=== PATIENT | male | born 1965 | race Caucasian/White ===

== ENCOUNTER 2016-12-25 21:14 | Emergency (ER) | payer OTHER ==
[2016-12-25 21:24] VITALS: BP 167/98; PULSE 98; TEMP 98; BMI 33.8
[2016-12-25] MEDS ORDERED: KETOROLAC TROMETHAMINE 30 MG/1 ML VIAL IM ONE (21:25)
--- NOTE | 2016-12-25 21:25 | PDOC ---
Rapid Medical Evaluation Medical Evaluation: Allergies Allergy/AdvReac Type Severity Reaction Status Date / Time iodine Allergy Verified 03/07/15 06:36 Penicillins Allergy Verified 03/07/15 06:36 12/25/16 21:20 I have performed a brief in-person evaluation of this patient. The patient presents with a chief complaint of right flank pain x 1 hour that radiates to right groin. Pertinent physical exam findings: ABD: Obese abdomen. SNTND. : Right CVAT. I have ordered the following: Toradol 30mg IM, UA, spiral CT, NS 1 liter bolus The patient will proceed to to the ED for further evaluation.
[2016-12-25] MEDS ORDERED: SODIUM CHLORIDE 1,000 ML IV STA (21:26)
[2016-12-25 22:33] LABS: URINE APPEARANCE SLCLOUDY; URINE BILIRUBIN NEGATIVE (NEGATIVE); URINE BLOOD 3+ (NEGATIVE); URINE COLOR YELLOW; URINE GLUCOSE (UA) 3+ (NEGATIVE); URINE KETONE TRACE (NEGATIVE); URINE NITRITE NEGATIVE (NEGATIVE); URINE UROBILINOGEN NEGATIVE mg/dL (0.2-1.0)
[2016-12-25 22:41] LABS: URINE PROTEIN 1+ (NEGATIVE)
[2016-12-25 23:15] LABS: URINE MUCUS RARE; URINE RBC 293 /hpf (0-3); URINE WBC 1 /hpf (3-5)
--- NOTE | 2016-12-26 00:10 | PDOC ---
History of Present Illness - General Chief Complaint: Pain, Acute Stated Complaint: PAIN, ACUTE Time Seen by Provider: 12/25/16 21:27 - History of Present Illness Initial Comments: 51 year old male with PMH of HTN and NIDDM presenting with right sided flank pain radiating to his groin with some urinary hesitancy over the last day. The flank pain started suddenly without trauma then a few hours later he felt radiation down his groin and had some issues urinating with noticed difficulty initiating urination. Denies fevers, chills, nausea, vomiting, diarrhea, or other symptoms. His PCP is Dr. Melendrez. 12/26/16 05:17 Past History - Past Medical History Allergies/Adverse Reactions: Allergies Allergy/AdvReac Type Severity Reaction Status Date / Time iodine Allergy Verified 12/25/16 21:21 Penicillins Allergy Verified 12/25/16 21:21 Home Medications: Ambulatory Orders Amlodipine Besylate 5 mg PO DAILY 03/06/15 Aspirin [ASA -] 81 mg PO DAILY 03/06/15 Glimepiride 1 mg PO DAILY 03/06/15 Hydrochlorothiazide 25 mg PO DAILY 03/06/15 Ranitidine [Zantac -] 150 mg PO DAILY 03/06/15 Sitagliptin Phos/Metformin HCl [Janumet 50-1,000 mg Tablet] 1 tab PO DAILY 03/06 Valsartan [Diovan] 160 mg PO DAILY 03/06/15 Fluticasone Propionate [Flonase Allergy Relief] 9.9 ml NS DAILY 12/26/16 Ibuprofen 800 mg PO DAILY PRN #30 tablet 12/26/16 Tamsulosin HCl [Flomax -] 0.4 mg PO DAILY #10 capsule 12/26/16 Anemia: No Asthma: No Cancer: No Cardiac Disorders: No CVA: No COPD: No CHF: No Dementia: No Diabetes: Yes (TYPE 2) GI Disorders: No Disorders: No HTN: Yes Hypercholesterolemia: Yes Liver Disease: No Seizures: No Thyroid Disease: No - Suicide/Smoking/Psychosocial Hx Smoking History: Current every day smoker Have you smoked in the past 12 months: Yes Number of Cigarettes Smoked Daily: 30 Information on smoking cessation initiated: No Hx Alcohol Use: No Drug/Substance Use Hx: No Substance Use Type: None Hx Substance Use Treatment: No Review of Systems - Review of Systems Constitutional: No: Chills, Diaphoresis, Fever HEENTM: No: Blurred Vision, Tearing, Recent change in vision Respiratory: No: Cough, Orthopnea, Shortness of Breath Cardiac (ROS): No: Chest Pain ABD/GI: No: Diarrhea, Nausea, Poor Appetite, Vomiting : Yes: Other (Difficulty initiating stream). No: Burning, Dysuria Musculoskeletal: Yes: Back Pain Integumentary: No: Bruising, Change in Color *Physical Exam - Vital Signs Last Vital Signs Temp Pulse Resp BP Pulse Ox 98.0 F 98 H 20 167/98 98 12/25/16 21:21 12/25/16 21:21 12/25/16 21:21 12/25/16 21:21 12/25/16 21:21 - Physical Exam General Appearance: Yes: Nourished, Appropriately Dressed. No: Apparent Distress HEENT: positive: EOMI, LEW, Normal ENT Inspection, Normal Voice Neck: positive: Trachea midline, Normal Thyroid, Rigid, Supple. negative: Tender Respiratory/Chest: positive: Lungs Clear, Normal Breath Sounds. negative: Chest Tender, Respiratory Distress Cardiovascular: positive: Regular Rhythm, Regular Rate. negative: Murmur Gastrointestinal/Abdominal: positive: Normal Bowel Sounds, Tender (Right Upper Quadrant Tenderness to light palpation), Flat, Soft Musculoskeletal: positive: Normal Inspection. negative: CVA Tenderness Extremity: positive: Normal Inspection, Normal Range of Motion. negative: Tender Integumentary: positive: Normal Color, Dry, Warm Neurologic: positive: Fully Oriented, Alert, Normal Mood/Affect ED Treatment Course - LABORATORY CBC & Chemistry Diagram: 12/26/16 00:40 12/26/16 00:40 - ADDITIONAL ORDERS Additional order review: Laboratory Results 12/25/16 21:40 Urine Color Yellow Urine Appearance Slcloudy Urine pH 5.0 Ur Specific [place] 1.020 Urine Protein 1+ H Urine Glucose (UA) 3+ H Urine Ketones Trace H Urine Blood 3+ H Urine Nitrite Negative Urine Bilirubin Negative Urine Urobilinogen Negative Urine RBC 293 Urine WBC 1 Ur Epithelial Cells Rare Urine Mucus Rare Medical Decision Making - Medical Decision Making 51 year old male with PMH of HTN presenting with right sided flank pain and urinary symptoms most concerning for a renal calculus. He is tender in his RUQ which also puts on the differential cholecysitis vs. cholelithiasis. He is afebrile with some HTN in the setting of pain. His pain resolved with Toradol [address] evidenced a right sided 6mm stone. UA demonstrating significant hematuria with 3+ blood. There was some slight elevation creatinine compared to labs from a few years prior. We discussed the findings with the patient and the likelihood that he may need to come back for stone removal. The patient endorsed that he would like to go home and followup with urology through Dr. Melendrez. He was DC'd home with flowmax, Motrin and follow up instructions with return precautions. 12/26/16 06:12 *DC/Admit/Observation/Transfer Diagnosis at time of Disposition: Renal calculus - Discharge Dispostion Disposition: HOME Condition at time of disposition: Improved Admit: No - Prescriptions Prescriptions: Tamsulosin HCl [Flomax -] 0.4 mg PO DAILY #10 capsule Ibuprofen 800 mg PO DAILY PRN #30 tablet PRN Reason: Pain Level 6-10 - Referrals Referrals: Gómez Barbosa MD [Primary Care Provider] - - Patient Instructions Printed Discharge Instructions: DI for Kidney Stones Additional Instructions: You were seen for right sided pain. We did a CT scan and found a 6mm stone. This stone is slightly larger than the average stone size that will pass through your urine but there is a chance it should still pass within the next few days. You must hydrate with clear water for the next few days. You can use Ibuprofen 800 MG for the pain. Please also take the flowmax nightly. Please follow up with Dr. Melendrez as soon as possible for a urology referral. Please return to the ED if your pain is not controlled with the Ibuprofen 800 MG or you see a lot of blood in your urine. As discussed previously, your pain might get worse when the pain starts to get close to exiting.
[2016-12-26] MEDS ORDERED: KETOROLAC TROMETHAMINE 30 MG/1 ML VIAL ONE (00:46)
[2016-12-26 00:54] LABS: BASOPHIL 0.3 % (0-2.0); EOSINOPHIL 0.5 % (0-4.5); MCH 29.7 pg (25.7-33.7); MCHC 33.8 g/dl (32.0-35.9); MEAN CELL VOLUME 88.1 fl (80-96); MEAN PLT VOLUME 9.6 fl (7.5-11.1); NEUTROPHILS 70.9 % (42.8-82.8); PLATELET COUNT 247 K/MM3 (134-434)
--- NOTE | 2016-12-26 01:02 | PDOC ---
Attending Attestation - Resident Resident Name: Thea Carlson - ED Attending Attestation I have performed the following: I have examined & evaluated the patient, The case was reviewed & discussed with the resident, I agree w/resident's findings & plan, Exceptions are as noted - HPI HPI: 12/26/16 00:58 Sudden onset of right side flank pain, radiating to the right groin. , dark urine and hesitancy. - Physicial Exam PE: 12/26/16 01:01 *Physical Exam General Appearance: Yes: Appropriately Dressed. No: Apparent Distress, Intoxicated HEENT: positive: EOMI, LEW, Normal ENT Inspection, Normal Voice, TMs Normal, Pharynx Normal. negative: Pale Conjunctivae, Photophobia, Scleral Icterus (R), Scleral Icterus (L) Neck: positive: Trachea midline, Normal Thyroid, Supple. negative: Tender, Rigid, Carotid bruit, Stridor, Lymphadenopathy (R), Lymphadenopathy (L), Thyromegaly Respiratory/Chest: positive: Lungs Clear, Normal Breath Sounds. negative: Chest Tender, Respiratory Distress, Accessory Muscle Use, Labored Respiration, RES, Crackles, Rales, Rhonchi, Stridor, Wheezing, Dullness Cardiovascular: positive: Regular Rhythm, Regular Rate, S1, S2. negative: Edema , JVD, Murmur, Bradycardia, Tachycardia Vascular Pulses: Dorsalis-Pedis (R): 2+, Doralis-Pedis (L): 2+ Gastrointestinal/Abdominal: positive: Normal Bowel Sounds, Flat, Soft. negative : Tender, Organomegaly, Pulsatile Mass, Increased Bowel Sounds, Decreased BS, Distended, Guarding, Rebound, Hernia, Hepatomegaly, Spleenomegaly Lymphatic: negative: Adenopathy, Tenderness Musculoskeletal: positive: Normal Inspection. negative: CVA Tenderness, Decreased Range of Motion Extremity: positive: Normal Capillary Refill, Normal Inspection, Normal Range of Motion, Pelvis Stable. negative: Tender, Pedal Edema, Swelling, Erythema Integumentary: positive: Normal Color, Dry, Warm. negative: Cyanotic, Erythema , Jaundice, Rash Neurologic: positive: rehabilitation caseworker II-XII NML intact, Fully Oriented, Alert, Normal Mood/ Affect, Motor Strength 5/5. negative: EOM Palsy, Facial Droop, Sensory Deficit - Medical Decision Making 12/26/16 19:20 Pt feels better. Pt discharged to follow up with his pcp and urology. Pt found to have righ sided kidney stone.
[2016-12-26 01:18] LABS: ANION GAP 8 (8-16); BILIRUBIN,TOTAL 0.4 mg/dL (0.2-1.0); CALCIUM 9.6 mg/dL (8.5-10.1); CO2 29 mmol/L (21-32); CREATININE 1.2 mg/dL (0.7-1.3); SGOT/AST 10 U/L (15-37); SGPT/ALT 20 U/L (12-78); TOT PROT 7.4 g/dl (6.4-8.2)
[2016-12-26 01:19] LABS: ALK PHOS 62 U/L (45-117)
[2016-12-26 01:20] LABS: GLUCOSE,RANDOM 318 mg/dL (74-106)
[2016-12-26] MEDS ORDERED: TAMSULOSIN HCL 0.4 MG CAP.ER.24H (FP) PO ONE (02:31)
[2016-12-26] MEDS ORDERED: TAMSULOSIN HCL 0.4 MG CAP.ER.24H (FP) ONE (02:32)
[2016-12-26 12:05] LABS: URINE LEUK ESTERASE Negative (NEGATIVE)
--- NOTE | 2016-12-28 07:25 | PDOC ---
Patient Follow-up (Call Back) - Post ED Follow - Up Chief Complaint: Pain, Acute Condition at time of discharge: Improved Disposition at time of original discharge: HOME Reason for Call Back: Abnwl. Microbiology (UC shows a non lactose fermenting GNB , colony count 20,000-30,000. No further tx needed as colony count not greated than 100,000.)
== END 2016-12-26 02:48 | disposition home or self-care (01) ==
LOC: JER 21:14
PROC: 3E0233Z Introduction of Anti-inflammatory into Muscle, Percutaneous Approach (ICD-10-PCS; principal; 2016-12-25)
PROC: 3E0337Z Introduction of Electrolytic and Water Balance Substance into Peripheral Vein, Percutaneous Approach (ICD-10-PCS; 2016-12-25)
DX: N23 Unspecified renal colic (principal); I10 Essential (primary) hypertension; F17.210 Nicotine dependence, cigarettes, uncomplicated
CPT/HCPCS: 36415; 74176; 80053; 81003; 81015; 85025; 87086; 87186; 99282-25

== ENCOUNTER 2017-10-25 13:38 | Emergency (ER) | payer OTHER ==
[2017-10-25 13:45] VITALS: BP 165/81; PULSE 83; TEMP 98.7; BMI 33.5
--- NOTE | 2017-10-25 14:22 | PDOC ---
History of Present Illness - General Chief Complaint: Chest Pain Stated Complaint: CHEST PAIN Time Seen by Provider: 10/25/17 13:52 History Source: Patient Exam Limitations: No Limitations - History of Present Illness Initial Comments: 10/25/17 14:27 Patient is a 51M with history of DM2, HTN, smoking, AAA (monitored by US, last 3.1 cm) here today complaining of chest pain that started yesterday after coughing. Patient reports that he has a chronic cough from smoking and the cough has not changed. Patient states the chest pain is on the left side of his chest and increases in pain when he presses on his chest. Patient endorses associated shoulder pain and has been told that he has a spur in his left shoulder. Pain worsens with arm movement. Denies shortness of breath, fever, chills, nausea, vomiting, diaphoresis. Denies leg swelling, recent travel, history of blood clots. Past History - Past Medical History Allergies/Adverse Reactions: Allergies Allergy/AdvReac Type Severity Reaction Status Date / Time iodine Allergy Verified 10/25/17 13:45 Penicillins Allergy Verified 10/25/17 13:45 Home Medications: Ambulatory Orders Amlodipine Besylate 5 mg PO DAILY 03/06/15 Aspirin [ASA -] 81 mg PO DAILY 03/06/15 Glimepiride 4 mg PO DAILY 03/06/15 Hydrochlorothiazide 25 mg PO DAILY 03/06/15 Ranitidine [Zantac -] 150 mg PO BID 03/06/15 Sitagliptin Phos/Metformin HCl [Janumet 50-1,000 mg Tablet] 1 tab PO BID Albuterol Sulfate [Proair Respiclick] 90 mcg IH PRN 10/25/17 Atorvastatin Ca [Lipitor] 20 mg PO HS 10/25/17 Cholecalciferol (Vitamin D3) [Vitamin D3 -] 2,000 unit PO DAILY 10/25/17 Ibuprofen 600 mg PO PRN PRN 10/25/17 Vitamin B Complex 1 each PO DAILY 10/25/17 Anemia: No Asthma: No Cancer: No Cardiac Disorders: No CVA: No COPD: No CHF: No Dementia: No Diabetes: Yes (TYPE 2) GI Disorders: No Disorders: No HTN: Yes Hypercholesterolemia: Yes Liver Disease: No Seizures: No Thyroid Disease: No - Suicide/Smoking/Psychosocial Hx Smoking History: Current every day smoker Have you smoked in the past 12 months: Yes Number of Cigarettes Smoked Daily: 30 Information on smoking cessation initiated: Yes Hx Alcohol Use: No Drug/Substance Use Hx: No Substance Use Type: None Hx Substance Use Treatment: No Review of Systems - Review of Systems Comments:: 10/25/17 14:32 GENERAL/CONSTITUTIONAL: No fever or chills. No weakness. HEAD, EYES, EARS, NOSE AND THROAT: No change in vision. No ear pain or discharge. No sore throat. CARDIOVASCULAR: +chest pain no shortness of breath RESPIRATORY: +cough, no wheezing, or hemoptysis. GASTROINTESTINAL: No nausea, vomiting, diarrhea or constipation. GENITOURINARY: No dysuria, frequency, or change in urination. MUSCULOSKELETAL: No joint or muscle swelling or pain. No neck or back pain. SKIN: No rash NEUROLOGIC: No headache, vertigo, loss of consciousness, or change in strength/ sensation. ENDOCRINE: No increased thirst. No abnormal weight change HEMATOLOGIC/LYMPHATIC: No anemia, easy bleeding, or history of blood clots. ALLERGIC/IMMUNOLOGIC: No hives or skin allergy. *Physical Exam - Vital Signs Last Vital Signs Temp Pulse Resp BP Pulse Ox 98.7 F 83 18 165/81 99 10/25/17 13:42 10/25/17 13:42 10/25/17 13:42 10/25/17 13:42 10/25/17 13:42 - Physical Exam Comments: 10/25/17 14:32 GENERAL: Awake, alert, and fully oriented, in no acute distress HEAD: No signs of trauma, normocephalic, atraumatic EYES: PERRLA, EOMI, sclera anicteric, conjunctiva clear ENT: Auricles normal inspection, hearing grossly normal, nares patent, oropharynx clear without exudates. Moist mucosa NECK: Normal ROM, supple, no lymphadenopathy, JVD, or masses LUNGS: No distress, speaks full sentences, clear to auscultation bilaterally HEART: Regular rate and rhythm, normal S1 and S2, no murmurs, rubs or gallops, peripheral pulses normal and equal bilaterally. ABDOMEN: Soft, nontender, normoactive bowel sounds. No guarding, no rebound. No masses EXTREMITIES: Normal inspection, Normal range of motion, no edema. No clubbing or cyanosis. NEUROLOGICAL: Cranial nerves II through XII grossly intact. Normal speech, no focal sensorimotor deficits SKIN: Warm, Dry, normal turgor, no rashes or lesions noted. Heart Score/ECG Review - History History: Slightly suspicious - Electrocardiogram EKG: Normal - Age Age: 45-65 - Risk Factors Risk Factors Heart Score: Yes Hx Hypertension, Yes Hx Diabetes, Yes Smoking History Based on the list above the patient has:: >/=3 risk factors or Hx atherosclerotic disease - Troponin Troponin: </= normal limit - Score Heart Score - Total: 3 ED Treatment Course - LABORATORY CBC & Chemistry Diagram: 10/25/17 14:45 10/25/17 14:45 - RADIOLOGY Radiology Studies Ordered: Category Date Time Status CHEST PA & LAT [RAD] Stat Radiology 10/25/17 14:04 Ordered Medical Decision Making - Medical Decision Making 10/25/17 14:32 Patient is 51M here today with chest pain. Vital signs normal and stable. PE does not fit clinical picture, likely MSK pain. Heart Score of 3 based on risk factors and age. Will use HEART pathway, and likely discharge. EKG shows normal sinus rhythm with rate of 77. No st elevations/depressions. No significant t wave abnormalities. Normal axis. Normal intervals. 10/25/17 15:55 First trop undetectable. Pending CXR, CBC, repeat trop. 10/25/17 18:09 Second trop negative. Will d/c with cardio f/u. *DC/Admit/Observation/Transfer Diagnosis at time of Disposition: Chest pain - Discharge Dispostion Disposition: HOME Condition at time of disposition: Good Decision to Admit order: No - Referrals Referrals: Jori Barbosa MD [Primary Care Provider] - Jose Florian MD [Staff Physician] - - Patient Instructions Printed Discharge Instructions: DI for Atypical Chest Pain Additional Instructions: Please return if you have any new, worsening or concerning symptoms. Please follow up with your waste management recycling technician and primary care provider this week. - Post Discharge Activity
[2017-10-25 15:00] LABS: BASO % 0.4 % (0-2.0); EOS % 0.8 % (0-4.5); HEMATOCRIT 40.6 % (35.4-49); HEMOGLOBIN 14.2 GM/dL (11.7-16.9); LYMPH % 29.3 % (8-40); MCH 30.5 pg (25.7-33.7); MCHC 34.9 g/dl (32.0-35.9); MEAN CELL VOLUME 87.4 fl (80-96); MEAN PLT VOLUME 8.8 fl (7.5-11.1); MONO % 7.8 % (3.8-10.2); NEUT % 61.7 % (42.8-82.8); PLATELET COUNT 274 K/MM3 (134-434); RBC 4.65 M/mm3 (4.00-5.60); RDW 12.8 % (11.9-15.9); WHITE BLOOD COUNT 9.5 K/mm3 (4.0-10.0)
--- NOTE | 2017-10-25 15:14 | PDOC ---
Attending Attestation - HPI HPI: 10/25/17 16:11 The patient is a 51-year-old male with a past medical history of HTN, AAA ( yearly checkup) and IDDM present to the emergency department with chest pain. The patient presents with anterior chest wall pain since yesterday following heavy coughing. The patient reports he is in the process of quitting smoking. Reports hes been experiencing increased productive cough and states he went down deep to bring up the sputum. The patient reports the pain is aggravated with palpation of the chest wall, with relief noted with massaging the area. The patient reports hx of rib fracture in the past, states the pain isnt similar. Denies shortness of breath, fever, chill, cough, headache, nausea or vomiting. Allergies:iodine and penicillin. Social history: Current everyday smoker. No alcohol or drug use reported. Surgical history: None reported. PCP: Jori Alonso MD - Physicial Exam PE: 10/25/17 16:16 GENERAL: Awake, alert, and fully oriented, in no acute distress HEAD: No signs of trauma EYES: PERRLA, EOMI, sclera anicteric, conjunctiva clear ENT: Auricles normal inspection, hearing grossly normal, nares patent, oropharynx clear without exudates. Moist mucosa NECK: Normal ROM, supple, no lymphadenopathy, JVD, or masses LUNGS: Breath sounds equal, clear to auscultation bilaterally. No wheezes, and no crackles HEART: Regular rate and rhythm, normal S1 and S2, no murmurs, rubs or gallops ABDOMEN: Soft, nontender, normoactive bowel sounds. No guarding, no rebound. No masses EXTREMITIES: Normal range of motion, no edema. No clubbing or cyanosis. No cords, erythema, or tenderness NEUROLOGICAL: Cranial nerves II through XII grossly intact. Normal speech, normal gait SKIN: Warm, Dry, normal turgor, no rashes or lesions noted. - Medical Decision Making 10/25/17 16:11 Documentation prepared by Beth Luna, acting as senior medical writer for April Gonsalves MD. <Beth Luna - Last Filed: 10/25/17 16:16> - Resident Resident Name: Josr Paniagua - ED Attending Attestation I have performed the following: I have examined & evaluated the patient, The case was reviewed & discussed with the resident, I agree w/resident's findings & plan, Exceptions are as noted - Medical Decision Making Pt with atypical cp following a vigorous cough. He has recently been in the process of quitting smoking and has been coughing and bringing up phlegm frequently. Noted this pain after trying to expectorate. He has history of AAA, but does not have any symptoms c/w with any disturbance of it. Also has cardiac risk factors, therefore will do 3 hr rule out with 2 troponins. <April Gonsalves - Last Filed: 10/26/17 10:07>
[2017-10-25 15:25] LABS: ALBUMIN 3.8 g/dl (3.4-5.0); ANION GAP 6 MMOL/L (8-16); BILIRUBIN,TOTAL 0.2 mg/dL (0.2-1.0); BLOOD UREA NITROGEN 10 mg/dL (7-18); CALCIUM 9.1 mg/dL (8.5-10.1); CHLORIDE 105 mmol/L (98-107); CO2 30 mmol/L (21-32); CREATININE 0.9 mg/dL (0.7-1.3); GLUCOSE,RANDOM 144 mg/dL (74-106); MAGNESIUM 1.8 mg/dL (1.8-2.4); POTASSIUM 3.9 mmol/L (3.5-5.1); SGOT/AST 15 U/L (15-37); SGPT/ALT 23 U/L (12-78); SODIUM 141 mmol/L (136-145); TOT PROT 7.2 g/dl (6.4-8.2)
[2017-10-25 15:28] LABS: ALK PHOS 53 U/L (45-117)
[2017-10-25 15:39] LABS: INR 0.96 (0.83-1.09); PROTHROMBIN TIME (PATIENT) 10.9 SEC (9.7-13.0)
--- NOTE | 2017-10-27 13:55 | EKG ---
Test Reason : Blood Pressure : / mmHG Vent. Rate : 077 BPM Atrial Rate : 077 BPM P-R Int : 140 ms QRS Dur : 096 ms QT Int : 384 ms P-R-T Axes : 066 050 031 degrees QTc Int : 434 ms NORMAL SINUS RHYTHM NORMAL ECG WHEN COMPARED WITH ECG OF 10-FEB-2011 09:51, NO SIGNIFICANT CHANGE WAS FOUND Confirmed by ESTEBAN JORDAN MD ([id number]) on 10/27/2017 1:54:22 PM Referred By: Confirmed By:ESTEBAN JORDAN MD
== END 2017-10-25 18:40 | disposition home or self-care (01) ==
LOC: JER 13:38
DX: R07.9 Chest pain, unspecified (principal); I10 Essential (primary) hypertension; E78.00 Pure hypercholesterolemia, unspecified; E11.9 Type 2 diabetes mellitus without complications; Z79.84 Long term (current) use of oral hypoglycemic drugs; I71.4 Abdominal aortic aneurysm, without rupture; F17.210 Nicotine dependence, cigarettes, uncomplicated
CPT/HCPCS: 36415; 71046-TC-FY; 80053; 82550; 83735; 84484; 85025; 85610; 93005; 93010; 99282-25

== ENCOUNTER 2018-11-09 02:55 | Emergency (ER) | payer OTHER | END 2018-11-09 05:05 | disposition home or self-care (01) | LOC: JER 02:55 ==

== ENCOUNTER 2018-11-10 09:31 | Inpatient (IN) | payer OTHER ==
[2018-11-02 12:26] VITALS: BMI 32.2
--- NOTE | 2018-11-10 08:06 | HP ---
[facility] - Chief Complaint Chief Complaint: right knee pain - Past Medical History Allergies/Adverse Reactions: Allergies Allergy/AdvReac Type Severity Reaction Status Date / Time iodine Allergy Severe SHORT OF Verified 11/09/18 03:03 BREATH Penicillins Allergy Severe Hives Verified 11/09/18 03:03 - Current Medications Current Medications: Home Medications Medication Instructions Recorded Amlodipine Besylate 5 mg PO DAILY 03/06/15 Aspirin [ASA -] 81 mg PO DAILY 03/06/15 Glimepiride 4 mg PO DAILY 03/06/15 Hydrochlorothiazide 25 mg PO DAILY 03/06/15 Ranitidine [Zantac -] 150 mg PO BID 03/06/15 Sitagliptin Phos/Metformin HCl 1 tab PO BID 03/06/15 [Janumet 50-1,000 mg Tablet] Albuterol Sulfate [Proair 90 mcg IH PRN 10/25/17 Respiclick] Atorvastatin Ca [Lipitor] 20 mg PO HS 10/25/17 Cholecalciferol (Vitamin D3) 2,000 unit PO DAILY 10/25/17 [Vitamin D3 -] Ibuprofen 600 mg PO PRN PRN 10/25/17 Vitamin B Complex 1 each PO DAILY 10/25/17 Glimepiride 2 mg PO DAILY 11/02/18 Insulin Glargine,Hum.rec.anlog 15 unit SQ DAILY 11/02/18 [Basaglar Kwikpen U-100] Valsartan 160 mg PO DAILY 11/02/18 Satellite Physical Exam - Physical Examination General Appearance: Well Nourished, Well Developed, Alert & Oriented x3 ENT: Clear Lung: Normal air movement Heart: Regular rate & rhythm Extremities: Other (right knee- + Swelling, + ttp, decr rom, nvi, xrays show grade 4 tricompartmental djd) Neurological: Intact, Alert, Oriented [facility]ellite Impression/Plan - Impression/Plan Impression: right knee djd Operative Procedure: right sindi tkr Date to be Performed: 11/10/18
[~2018-11-10 09:31] MED LIST: VANCOMYCIN 1,000 MG VIAL (RESTRICTED TO ID ONLY) IVPB ONE
[2018-11-10] MEDS ORDERED: TRANEXAMIC ACID 1000 MG/10 ML VIAL IVPUSH ONE (09:52)
[2018-11-10] MEDS ORDERED: CELECOXIB 200 MG CAPSULE PO ONE (09:52)
[2018-11-10] MEDS ORDERED: CEFAZOLIN 3 GM in DEXTROSE 5%-WATER - 100 ML IVPB ONE (09:52)
[2018-11-10] MEDS ORDERED: BUPIVACAINE LIPOSOME/PF (EXPAREL) 266 MG/20 ML VIAL ONE (10:59)
[2018-11-10] MEDS ORDERED: MIDAZOLAM HCL 2 MG/2 ML SINGLE DOSE VIAL ONE ×3 (10:59→12:35)
[2018-11-10] MEDS ORDERED: SODIUM CHLORIDE 0.9% P/F 10 ML VIAL IJ ONE (10:59)
[2018-11-10] MEDS ORDERED: ceFAZolin SODIUM 1 GM VIAL ONE ×3 (11:20→21:25)
[2018-11-10] MEDS ORDERED: DEXAMETHASONE SOD PHOSPHATE 4 MG/1 ML VIAL ONE ×2 (11:20→15:26)
[2018-11-10] MEDS ORDERED: PROPOFOL 20 ML ONE ×3 (11:20→13:47)
[2018-11-10] MEDS ORDERED: TRANEXAMIC ACID 1000 MG/10 ML VIAL ONE (11:20)
[2018-11-10] MEDS ORDERED: ONDANSETRON 4 MG/2 ML VIAL ONE ×2 (11:20→15:26)
[2018-11-10] MEDS ORDERED: BUPIVACAINE HCL/PF 0.5% (5 MG/ML) 30 ML VIAL IJ ONE (11:38)
[2018-11-10] MEDS ORDERED: VANCOMYCIN 1,000 MG VIAL (RESTRICTED TO ID ONLY) ONE (11:40)
[2018-11-10] MEDS ORDERED: ONDANSETRON 4 MG/2 ML VIAL IVPUSH PRN ×2 (11:53→15:50)
[2018-11-10] MEDS ORDERED: oxyCODONE HCL 5 MG TABLET PO PRN ×2 (11:53)
[2018-11-10] MEDS ORDERED: ceFAZolin SODIUM 1 GM VIAL IVPB ONE (12:45)
[2018-11-10] MEDS: INSULIN SLIDING SCALE (NOVOLOG) 1 VIAL SQ SCH ×2 (13:04→21:49)
[2018-11-10] MEDS ORDERED: VANCOMYCIN 1,000 MG VIAL (RESTRICTED TO ID ONLY) IVPB ONE (13:45)
[2018-11-10] MEDS ORDERED: ACETAMINOPHEN INJECTION 100 ML IVPB ONE (14:03)
[2018-11-10] MEDS: ACETAMINOPHEN 1000 MG/100 ML VIAL (NON FORMULARY) IVPB ONE (14:34)
[2018-11-10] MEDS ORDERED: MAGNESIUM HYDROX 2400MG/30ML ORAL SUSPENSION 30 ML CUP PO PRN (15:50)
[2018-11-10] MEDS ORDERED: MAG HYDROX/AL HYDROX/SIMETH 30 ML UNIT-DOSE CUP PO PRN (15:50)
--- NOTE | 2018-11-10 15:54 | OP ---
Operative Note - Note: Operative Date: 11/10/18 (brii) Pre-Operative Diagnosis: right knee djd Operation: right sindi tkr Post-Operative Diagnosis: Same as Pre-op Surgeon: Fortunato Donovan Dryer And Washer Mechanic: Trip Young Anesthesia: Spinal, Local Specimens Removed: bone fragments Estimated Blood Loss (mls): 100 Operative Report Dictated: Yes
[2018-11-10] MEDS ORDERED: ALBUTEROL SO4 8 GM HFA INHALER IH PRN (16:00)
[2018-11-10] MEDS ORDERED: LACTATED RINGERS SOLUTION 1,000 ML IV SCH (16:00)
--- NOTE | 2018-11-10 19:15 | SPEC ---
DATE OF OPERATION: 11/10/2018 PREOPERATIVE DIAGNOSIS: Degenerative joint disease, right knee. POSTOPERATIVE DIAGNOSIS: Degenerative joint disease, right knee. PROCEDURE: Right total knee replacement with robotic-assisted navigation (MAKOplasty)/Press-Fit. SURGICAL ATTENDING: Fortunato Donovan MD FRET SAW OPERATOR: VERO Carrera ANESTHESIA: Regional and spinal. CLOSURE: A 4 femur, 4 tibia, 9 polyethylene, a 38 patella; No. 1 Vicryl fascia, 0 and 2-0 for subcutaneous, 3-0 Monocryl subcuticular with skin glue for skin, 4-0 undyed Vicryl for pin sites. ESTIMATED BLOOD LOSS: Less than 100 mL. COMPLICATIONS: None. CONDITION: To recovery room in stable condition. DESCRIPTION OF OPERATIVE PROCEDURE: Patient was taken to the operating room on November 10, 2018. Regional and spinal anesthesia was administered by the anesthesiologist. IV Kefzol was administered prophylactically prior to the case as well as TXA. The right lower extremity was prepped and draped in the usual sterile fashion. The midline 10- to 12-cm longitudinal incision was made. Hemostasis was achieved with Bovie cautery. Sharp dissection was carried down to the extensor mechanism which was perform the procedure. Medial parapatellar arthrotomy was then performed, leaving a cuff of tissue for later closure. The patella was inverted and the knee was flexed up. The fat pad was excised. Subperiosteal dissection was done on the anteromedial proximal tibia until the knee was able to be brought forward. This was facilitated by taking the ACL, PCL and medial and lateral menisci. Checkpoints were placed in both the femur and in the tibia. Two parallel threaded pins were drilled superior to the knee joint through the already made incision from anterior to posterior just going through the anterior cortex but just engaging but not going through the posterior cortex. Two threaded pins were drilled through 2 small stab incisions in parallel fashion 1 handbreadth below the tibial tubercle through the anterior cortex of the tibia and engaging but not going through the posterior cortex. Both sets of pins were attached to navigation arrays for the LEWIS system. The knee was then registered with the navigation system with center of rotation of the hip, medial and lateral malleoli and multiple sites both on the tibia and on the femur. Confirmation of excellent registration was confirmed by "popping the bubbles." At this time, the knee was thoroughly inspected to remove all osteophytes around the knee. The knee was then tensioned in varus/valgus at both full extension and at 90 degrees of flexion to ascertain our gaps. The virtual position of the components was optimized to ensure equal gaps throughout the range of motion. Once this was performed, the robot was brought into the field, was registered. The bone was cut as per the specifications on both the tibia and on the femur. The box cuts were then made as well. Excellent trial stability was obtained on the femur. The tibial baseplate was allowed to "find itself" and then was clipped into place. Confirmation of excellent external rotation of that component was confirmed by the navigation device as well.The patella was calibered for thickness and cut at the appropriate level. The appropriate lollipop was used to drill 3 holes in the patella and a trial asymmetric patellar button was applied. The knee was taken through a range of motion and found to have excellent stability from full extension to full flexion with excellent tracking of the patella. The trial components were then removed. The lug holes were drilled in the femur. The cementless keel was punched in the tibia. The real Press-Fit components were malleted into place, first with the tibia and then with the femur, and then the patella was crimped into place as well. The real polyethylene liner was then clipped into place. Range of motion, stability and tracking were as described earlier. The knee was thoroughly irrigated with copious amounts of irrigation. Vancomycin powder was placed inside the joint. The medial parapatellar arthrotomy was then closed using No. 1 Vicryl interrupted suture. Post closure of the arthrotomy, the knee was taken through a range of motion and found to have no undue tension on the repair. The subcutaneous was then pulse antibiotic irrigated, closed with 0 and 2-0 Vicryl and 3-0 Monocryl subcuticular with skin glue for the skin. Prior to closure, the checkpoints were removed as were the threaded pins. The tibial pin sites were closed with 4-0 undyed Vicryl. A sterile pressure Aquacel dressing was applied. No tourniquet was used during the case. The total blood loss was approximately 100 mL. No complication. Patient was transferred to recovery in stable condition. Junie [id number]
[2018-11-10] MEDS ORDERED: CEFAZOLIN 3 GM in DEXTROSE 5%-WATER 100 ML IVPB SCH ×2 (21:00→22:00)
[2018-11-10] MEDS ORDERED: ACETAMINOPHEN 325 MG TABLET (FP) PO ONE (21:00)
[2018-11-10] MEDS ORDERED: DEXTROSE 5%-WATER 100 ML IVPB ONE (21:25)
[2018-11-10] MEDS: ATORVASTATIN CA 20 MG TABLET (FP) PO SCH (21:48)
[2018-11-10] MEDS: RANITIDINE HCL 150 MG TABLET (FP) PO SCH (21:48)
[2018-11-10] MEDS: sitaGLIPtin PHOSPHATE 50 MG TABLET PO SCH (21:48)
[2018-11-10] MEDS: CEFAZOLIN 3 GM in DEXTROSE 5%-WATER 100 ML IVPB SCH (21:48)
[2018-11-10] MEDS: metFORMIN HCL 500 MG TABLET (FP) PO SCH (21:48)
[2018-11-10] MEDS: SENNOSIDES/DOCUSATE COMBO (SENNA PLUS) TABLET (UD) PO SCH (21:48)
[2018-11-10] MEDS: oxyCODONE HCL 10 MG SUSTAINED ACTING TABLET PO SCH (21:49)
[2018-11-10] MEDS ORDERED: PATIENT'S OWN MEDICATION (NON-FORMULARY) (Sitagliptin Phos/Metformin Hcl [Janumet 50-1,000 PO SCH (22:00)
[2018-11-10] MEDS ORDERED: INSULIN (LEVEMIR) 100 UNITS/ML UNITS SQ SCH (22:00)
[2018-11-11] MEDS ORDERED: ceFAZolin SODIUM 1 GM VIAL ONE (05:20)
[2018-11-11] MEDS: INSULIN SLIDING SCALE (NOVOLOG) 1 VIAL SQ SCH ×4 (06:35→22:03)
[2018-11-11] MEDS: sitaGLIPtin PHOSPHATE 50 MG TABLET PO SCH ×2 (06:37→22:05)
[2018-11-11] MEDS: CEFAZOLIN 3 GM in DEXTROSE 5%-WATER 100 ML IVPB SCH (06:37)
[2018-11-11] MEDS: GLIMEPIRIDE 2 MG TABLET (FP) PO SCH (06:37)
[2018-11-11] MEDS: metFORMIN HCL 500 MG TABLET (FP) PO SCH ×2 (06:37→22:00)
[2018-11-11] MEDS ORDERED: GLIMEPIRIDE 1 MG TABLET (FP) PO SCH (07:00)
[2018-11-11 07:24] LABS: HEMATOCRIT 39.9 % (35.4-49); HEMOGLOBIN 13.5 GM/dl (11.7-16.9); MCH 30.3 pg (25.7-33.7); MCHC 33.9 g/dl (32.0-35.9); MEAN CELL VOLUME 89.5 fl (80-96); MEAN PLT VOLUME 9.1 fl (7.5-11.1); PLATELET COUNT 268 K/MM3 (134-434); RBC 4.46 M/mm3 (4.00-5.60)
[2018-11-11] MEDS: LACTATED RINGERS SOLUTION 1,000 ML IV SCH ×2 (08:22→12:02)
[2018-11-11] MEDS: ACETAMINOPHEN 1000 MG/100 ML VIAL (NON FORMULARY) IVPB ONE (08:22)
--- NOTE | 2018-11-11 08:55 | PN ---
Progress Note (short form) - Note Progress Note: Ortho Pt seen and examined s/p right sindi tkr pod #1 Selected Entries 11/11/18 06:00 Temperature 98.7 F Pulse Rate 95 H Respiratory 20 Rate Blood Pressure 173/78 H Laboratory Tests 11/11/18 07:06 WBC 13.0 H Hgb 13.5 Hct 39.9 Plt Count 268 dressing c/d/i, calf soft, nt rom 0-20, nvi a/p PT dvt ppx pain control d/c home tomorrow if stable
[2018-11-11] MEDS: ASPIRIN 325 MG TABLET PO SCH (09:15)
[2018-11-11] MEDS: MULTIVITAMINS (DAILY MVI) TABLET (FP) PO SCH (09:16)
[2018-11-11] MEDS: HYDROCHLOROTHIAZIDE 25 MG TABLET (FP) PO SCH (09:16)
[2018-11-11] MEDS: KETOROLAC TROMETHAMINE 30 MG/1 ML VIAL IVPUSH SCH ×3 (09:16→22:02)
[2018-11-11] MEDS: SENNOSIDES/DOCUSATE COMBO (SENNA PLUS) TABLET (UD) PO SCH ×2 (09:16→22:05)
[2018-11-11] MEDS: PANTOPRAZOLE 40 MG TABLET (FP) PO SCH (09:17)
[2018-11-11] MEDS: RANITIDINE HCL 150 MG TABLET (FP) PO SCH ×2 (09:17→22:04)
[2018-11-11] MEDS: oxyCODONE HCL 10 MG SUSTAINED ACTING TABLET PO SCH ×2 (09:17→22:05)
[2018-11-11] MEDS: VALSARTAN 160 MG TABLET (UD) PO SCH (09:17)
[2018-11-11] MEDS: amLODIPine BESYLATE 5 MG TABLET (FP) PO SCH (09:17)
[2018-11-11] MEDS: INSULIN (LEVEMIR) 100 UNITS/ML UNITS SQ SCH ×2 (09:27→09:40)
[2018-11-11] MEDS ORDERED: PATIENT'S OWN MEDICATION (NON-FORMULARY) (Insulin Glargine,Hum.Rec.Anlog [Basaglar Kwikpen SQ SCH (10:00)
--- NOTE | 2018-11-11 10:05 | PN ---
Progress Note, Physician Chief Complaint: AWAKE ALERT IN PT C/O PAIN TO SURGICAL RIGHT KNEE SWEATING NO FEVERS DENIES CHEST PAIN OR SOB - Current Medication List Current Medications: Active Medications Acetaminophen (Tylenol -) 1,000 mg PO Q6H PRN PRN Reason: PAIN LEVEL 1-5 Al Hydroxide/Mg Hydroxide (Mylanta Oral Suspension -) 30 ml PO Q4H PRN PRN Reason: DYSPEPSIA Albuterol Sulfate (Ventolin Hfa Inhaler -) 2 puff IH Q4H PRN PRN Reason: SHORTNESS OF BREATH Amlodipine Besylate (Norvasc -) 5 mg PO DAILY [facility] Last Admin: 11/11/18 09:17 Dose: 5 mg Aspirin (Asa -) 325 mg PO DAILY@0800 [facility] Last Admin: 11/11/18 09:15 Dose: 325 mg Atorvastatin Calcium (Lipitor -) 20 mg PO HS [facility] Last Admin: 11/10/18 21:48 Dose: 20 mg Glimepiride (Amaryl -) 6 mg PO AM [facility] Last Admin: 11/11/18 06:37 Dose: 6 mg Hydrochlorothiazide (Hctz -) 25 mg PO DAILY [facility] Last Admin: 11/11/18 09:16 Dose: 25 mg Lactated Ringer's (Lactated Ringers Solution) 1,000 mls @ 75 mls/hr IV ASDIR [facility] Last Admin: 11/11/18 08:22 Dose: Not Given Insulin Aspart (Novolog Vial Sliding Scale -) 1 vial SQ ACHS [facility]; Protocol Last Admin: 11/11/18 06:35 Dose: Not Given Insulin Detemir (Levemir Vial) 15 units SQ DAILY [facility] Last Admin: 11/11/18 09:40 Dose: Not Given Ketorolac Tromethamine (Toradol Injection -) 30 mg IVPUSH Q6H [facility] Stop: 11/12/18 03:01 Last Admin: 11/11/18 09:16 Dose: 30 mg Magnesium Hydroxide (Milk Of Magnesia -) 30 ml PO PRN PRN PRN Reason: CONSTIPATION Metformin HCl (Glucophage -) 1,000 mg PO BID@0700,2200 [facility] Last Admin: 11/11/18 06:37 Dose: 1,000 mg Multivitamins/Minerals/Vitamin C (Tab-A-Vit -) 1 tab PO DAILY [facility] Last Admin: 11/11/18 09:16 Dose: 1 tab Ondansetron HCl (Zofran Injection) 4 mg IVPUSH Q6H PRN PRN Reason: NAUSEA Oxycodone HCl (Roxicodone -) 10 mg PO Q4H PRN PRN Reason: PAIN LEVEL 6-10 Last Admin: 11/11/18 04:38 Dose: 10 mg Oxycodone HCl (Roxicodone -) 5 mg PO Q4H PRN PRN Reason: PAIN LEVEL 1-5 Last Admin: 11/11/18 00:26 Dose: 5 mg Oxycodone HCl (Oxycontin -) 10 mg PO BID [facility] Last Admin: 11/11/18 09:17 Dose: 10 mg Pantoprazole Sodium (Protonix -) 40 mg PO DAILY [facility] Last Admin: 11/11/18 09:17 Dose: 40 mg Ranitidine HCl (Zantac -) 150 mg PO BID [facility] Last Admin: 11/11/18 09:17 Dose: 150 mg Senna/Docusate Sodium (Pericolace -) 2 tablet PO BID [facility] Last Admin: 11/11/18 09:16 Dose: 2 tablet Sitagliptin Phosphate (Januvia -) 50 mg PO BID@0700,2200 [facility] Last Admin: 11/11/18 06:37 Dose: 50 mg Valsartan (Diovan -) 160 mg PO DAILY [facility] Last Admin: 11/11/18 09:17 Dose: 160 mg - Objective Vital Signs: Vital Signs Temperature 98.3 F 11/11/18 09:41 Pulse Rate 86 11/11/18 09:41 Respiratory Rate 18 11/11/18 09:41 Blood Pressure 154/74 11/11/18 09:41 O2 Sat by Pulse Oximetry (%) 92 L 11/11/18 09:41 Constitutional: Yes: Mild Distress Cardiovascular: Yes: Regular Rate and Rhythm Respiratory: Yes: Wheezes Gastrointestinal: Yes: Soft Genitourinary: Yes: WNL Musculoskeletal: Yes: Other Integumentary: Yes: Other (RLE DRESSING CLEAN NO DISCHARGE) Wound/Incision: Yes: Dressing Dry and Intact Neurological: Yes: WNL ...Motor Strength: RLE Psychiatric: Yes: WNL Labs: CBC, BMP 11/11/18 07:06 Problem List - Problems (1) S/P right knee surgery Code(s): Z98.890 - OTHER SPECIFIED POSTPROCEDURAL STATES (2) DMII (diabetes mellitus, type 2) Code(s): E11.9 - TYPE 2 DIABETES MELLITUS WITHOUT COMPLICATIONS (3) DJD (degenerative joint disease) Code(s): M19.90 - UNSPECIFIED OSTEOARTHRITIS, UNSPECIFIED SITE (4) Smoker Code(s): F17.200 - NICOTINE DEPENDENCE, UNSPECIFIED, UNCOMPLICATED (5) Tobacco dependence Code(s): F17.200 - NICOTINE DEPENDENCE, UNSPECIFIED, UNCOMPLICATED (6) COPD (chronic obstructive pulmonary disease) Code(s): J44.9 - CHRONIC OBSTRUCTIVE PULMONARY DISEASE, UNSPECIFIED (7) Hypertension Code(s): I10 - ESSENTIAL (PRIMARY) HYPERTENSION Assessment/Plan POD # 1 RIGHT KNEE LEWIS PAIN CONTROL DVT PROPHYLAXIS PT EVAL BGM CHECKS BP CONTROLLED STOOL SOFTENERS DC PLANNING TOMORROW
[2018-11-11] MEDS ORDERED: ACETAMINOPHEN 1000 MG/100 ML VIAL (NON FORMULARY) IVPB PRN (10:06)
[2018-11-11] MEDS ORDERED: INSULIN (NOVOLOG) ASPART 100 UNITS/ML 10ML VIAL ONE ×2 (11:56→17:07)
[2018-11-11] MEDS: ATORVASTATIN CA 20 MG TABLET (FP) PO SCH (22:04)
[2018-11-11] MEDS: ACETAMINOPHEN 500 MG TABLET (FP) PO PRN (22:13)
[2018-11-12] MEDS: KETOROLAC TROMETHAMINE 30 MG/1 ML VIAL IVPUSH SCH (03:04)
[2018-11-12] MEDS: INSULIN SLIDING SCALE (NOVOLOG) 1 VIAL SQ SCH ×2 (06:05→11:49)
[2018-11-12] MEDS: metFORMIN HCL 500 MG TABLET (FP) PO SCH (06:06)
[2018-11-12] MEDS: GLIMEPIRIDE 2 MG TABLET (FP) PO SCH (06:06)
[2018-11-12] MEDS: sitaGLIPtin PHOSPHATE 50 MG TABLET PO SCH (06:07)
[2018-11-12] MEDS: ACETAMINOPHEN 500 MG TABLET (FP) PO PRN (06:11)
[2018-11-12 08:14] LABS: HEMATOCRIT 37.3 % (35.4-49); HEMOGLOBIN 12.6 GM/dl (11.7-16.9); MCH 30.2 pg (25.7-33.7); MCHC 33.9 g/dl (32.0-35.9); PLATELET COUNT 251 K/MM3 (134-434); RBC 4.19 M/mm3 (4.00-5.60); RDW 11.8 % (11.9-15.9); WHITE BLOOD COUNT 9.9 K/mm3 (4.0-10.8)
[2018-11-12] MEDS: ASPIRIN 325 MG TABLET PO SCH (08:16)
[2018-11-12 08:17] LABS: CALCIUM 9.4 mg/dl (8.5-10); CREATININE 0.8 mg/dl (0.55-1.3); POTASSIUM 3.9 mmol/L (3.5-5.1)
--- NOTE | 2018-11-12 08:41 | PN ---
Progress Note (short form) - Note Progress Note: Ortho Pt seen and examined s/p right sindi tkr pod #2 Selected Entries 11/12/18 05:00 Temperature 98.0 F Pulse Rate 80 Respiratory 17 Rate Blood Pressure 133/72 Laboratory Tests 11/12/18 07:00 WBC 9.9 Hgb 12.6 Hct 37.3 Plt Count 251 dressing c/d/i, calf soft, nt rom 0-70, nvi a/p PT dvt ppx pain control d/c home today f/u in 1 week
--- NOTE | 2018-11-12 08:42 | DS ---
Physical Examination Vital Signs: Vital Signs Temperature 98 F 11/12/18 05:00 Pulse Rate 80 11/12/18 05:00 Respiratory Rate 17 11/12/18 05:00 Blood Pressure 133/72 11/12/18 05:00 O2 Sat by Pulse Oximetry (%) 95 11/12/18 05:00 Labs: CBC, BMP 11/12/18 07:00 11/12/18 07:00 Discharge Summary Reason For Visit: OSTEOARTHRITIS Current Active Problems COPD (chronic obstructive pulmonary disease) (Acute) DJD (degenerative joint disease) (Acute) DMII (diabetes mellitus, type 2) (Acute) Hypertension (Acute) S/P right knee surgery (Acute) Smoker (Acute) Tobacco dependence (Acute) Procedures: Principal: right sindi tkr Hospital Course: admitted for elective right sindi tkr, post-op as per protocol, stable for d/c Condition: Good - Instructions Diet, Activity, Other Instructions: Post-op Instructions-Total Knee Replacement Call the office for a follow-up appointment in 1 week - [phone] Aspirin 325mg daily for 6 weeks. Pain medication was sent into your pharmacy. Apply Graduated Compression Stockings (TEDs) to both lower extremities- remove daily for hygiene ONLY Apply Sequential Compression Device (SCDs) to both Lower extremities remove for PT and hygiene ONLY Apply cold packs to affected area for 15 minutes every 2 hours. Physical Therapist will come to your home for the first 5 days. You will be set up with outpatient PT at your first post-operative visit. Patient may ambulate as tolerated-encourage self care (at least every 2-3 hours while awake) with walker or cane Maintain Aquacel (waterproof) dressing to operative wound (will be removed by surgeon at first office visit) Shower with Aquacel dressing in place-if Aquacel integrity compromised, remove and apply dry sterile dressing and notify Orthopedist. DO NOT SHOWER unless Orthopedists approves without Aquacel dressing CONTACT THE OFFICE FOR ANY CHANGE IN YOUR CONDITION (for example-fever greater than 102 degrees, excessive bleeding from operative site, purulent drainage, severe swelling or pain) GO TO THE EMERGENCY ROOM IF THERE IS A MEDICAL EMERGENCY Knee Precautions: * Keep a rolled towel under affected heel while in bed or chair (to keep knee in extension) * Keep affected leg elevated except during mealtimes * DO NOT PLACE PILLOW UNDER AFFECTED KNEE * If you have any questions, please do not hesitate to call the office - . Referrals: Fortunato Donovan MD [Staff Physician] - Disposition: VNS/HOME HEALTH CARE - Home Medications Comprehensive Discharge Medication List: Ambulatory Orders Amlodipine Besylate 5 mg PO DAILY 03/06/15 Aspirin [ASA -] 81 mg PO DAILY 03/06/15 Hydrochlorothiazide 25 mg PO DAILY 03/06/15 Ranitidine [Zantac -] 150 mg PO BID 03/06/15 Sitagliptin Phos/Metformin HCl [Janumet 50-1,000 mg Tablet] 1 tab PO BID Albuterol Sulfate [Proair Respiclick] 90 mcg IH PRN 10/25/17 Atorvastatin Ca [Lipitor] 20 mg PO HS 10/25/17 Cholecalciferol (Vitamin D3) [Vitamin D -] 2,000 unit PO DAILY 10/25/17 Ibuprofen 600 mg PO PRN PRN 10/25/17 Vitamin B Complex 1 each PO DAILY 10/25/17 Glimepiride 6 mg PO DAILY 11/02/18 Insulin Glargine,Hum.rec.anlog [Basaglar Kwikpen U-100] 15 unit SQ DAILY Valsartan 160 mg PO DAILY 11/02/18 Aspirin [ASA -] 325 mg PO DAILY@0800 tablet 11/11/18 Oxycodone HCl/Acetaminophen [Percocet 5-325 mg Tablet] 1 - 2 tab PO Q6H #30 tab MDD 6 11/11/18
[2018-11-12 09:34] VITALS: BP 130/67; PULSE 74; TEMP 98.1
[2018-11-12] MEDS: RANITIDINE HCL 150 MG TABLET (FP) PO SCH (10:21)
[2018-11-12] MEDS: HYDROCHLOROTHIAZIDE 25 MG TABLET (FP) PO SCH (10:22)
[2018-11-12] MEDS: SENNOSIDES/DOCUSATE COMBO (SENNA PLUS) TABLET (UD) PO SCH (10:22)
[2018-11-12] MEDS: MULTIVITAMINS (DAILY MVI) TABLET (FP) PO SCH (10:23)
[2018-11-12] MEDS: amLODIPine BESYLATE 5 MG TABLET (FP) PO SCH (10:23)
[2018-11-12] MEDS: VALSARTAN 160 MG TABLET (UD) PO SCH (10:23)
[2018-11-12] MEDS: PANTOPRAZOLE 40 MG TABLET (FP) PO SCH (10:23)
[2018-11-12] MEDS: oxyCODONE HCL 10 MG SUSTAINED ACTING TABLET PO SCH (10:26)
[2018-11-12] MEDS: INSULIN (LEVEMIR) 100 UNITS/ML UNITS SQ SCH (10:26)
--- NOTE | 2018-11-12 10:34 | PN ---
Progress Note, Physician Chief Complaint: seen at PT room patient ready to go home - Current Medication List Current Medications: Active Medications Acetaminophen (Tylenol -) 1,000 mg PO Q6H PRN PRN Reason: PAIN LEVEL 1-5 Last Admin: 11/12/18 06:11 Dose: 1,000 mg Acetaminophen (Ofirmev Injection -) 1,000 mg IVPB Q6H PRN PRN Reason: PAIN LEVEL 1-5 Al Hydroxide/Mg Hydroxide (Mylanta Oral Suspension -) 30 ml PO Q4H PRN PRN Reason: DYSPEPSIA Albuterol Sulfate (Ventolin Hfa Inhaler -) 2 puff IH Q4H PRN PRN Reason: SHORTNESS OF BREATH Amlodipine Besylate (Norvasc -) 5 mg PO DAILY [facility] Last Admin: 11/12/18 10:23 Dose: 5 mg Aspirin (Asa -) 325 mg PO DAILY@0800 [facility] Last Admin: 11/12/18 08:16 Dose: 325 mg Atorvastatin Calcium (Lipitor -) 20 mg PO HS [facility] Last Admin: 11/11/18 22:04 Dose: 20 mg Glimepiride (Amaryl -) 6 mg PO AM [facility] Last Admin: 11/12/18 06:06 Dose: 6 mg Hydrochlorothiazide (Hctz -) 25 mg PO DAILY [facility] Last Admin: 11/12/18 10:22 Dose: 25 mg Lactated Ringer's (Lactated Ringers Solution) 1,000 mls @ 75 mls/hr IV ASDIR [facility] Last Admin: 11/11/18 12:02 Dose: Not Given Insulin Aspart (Novolog Vial Sliding Scale -) 1 vial SQ [facility]; Protocol Last Admin: 11/12/18 06:05 Dose: Not Given Insulin Detemir (Levemir Vial) 15 units SQ DAILY [facility] Last Admin: 11/12/18 10:26 Dose: 15 units Magnesium Hydroxide (Milk Of Magnesia -) 30 ml PO PRN PRN PRN Reason: CONSTIPATION Metformin HCl (Glucophage -) 1,000 mg PO BID@0700,2200 [facility] Last Admin: 11/12/18 06:06 Dose: 1,000 mg Multivitamins/Minerals/Vitamin C (Tab-A-Vit -) 1 tab PO DAILY [facility] Last Admin: 11/12/18 10:23 Dose: 1 tab Ondansetron HCl (Zofran Injection) 4 mg IVPUSH Q6H PRN PRN Reason: NAUSEA Oxycodone HCl (Roxicodone -) 10 mg PO Q4H PRN PRN Reason: PAIN LEVEL 6-10 Last Admin: 11/11/18 04:38 Dose: 10 mg Oxycodone HCl (Oxycontin -) 10 mg PO BID [facility] Last Admin: 11/12/18 10:26 Dose: Not Given Pantoprazole Sodium (Protonix -) 40 mg PO DAILY [facility] Last Admin: 11/12/18 10:23 Dose: 40 mg Ranitidine HCl (Zantac -) 150 mg PO BID [facility] Last Admin: 11/12/18 10:21 Dose: 150 mg Senna/Docusate Sodium (Pericolace -) 2 tablet PO BID [facility] Last Admin: 11/12/18 10:22 Dose: 2 tablet Sitagliptin Phosphate (Januvia -) 50 mg PO BID@0700,2200 [facility] Last Admin: 11/12/18 06:07 Dose: 50 mg Valsartan (Diovan -) 160 mg PO DAILY [facility] Last Admin: 11/12/18 10:23 Dose: 160 mg - Objective Vital Signs: Vital Signs Temperature 98.1 F 11/12/18 09:30 Pulse Rate 74 11/12/18 09:30 Respiratory Rate 18 11/12/18 09:30 Blood Pressure 130/67 11/12/18 09:30 O2 Sat by Pulse Oximetry (%) 95 11/12/18 09:30 Constitutional: Yes: Calm Cardiovascular: Yes: Regular Rate and Rhythm, S1, S2 Respiratory: Yes: CTA Bilaterally Gastrointestinal: Yes: Normal Bowel Sounds, Soft Extremities: Yes: Other (right knee swelling able to move aquacel dressing) Edema: Yes Neurological: Yes: Alert, Oriented Labs: CBC, BMP 11/12/18 07:00 11/12/18 07:00 Problem List - Problems (1) S/P right knee surgery Assessment/Plan: FU with dr rose in one week aspirin 325mg po daily Code(s): Z98.890 - OTHER SPECIFIED POSTPROCEDURAL STATES (2) DMII (diabetes mellitus, type 2) Assessment/Plan: insulin regimen Code(s): E11.9 - TYPE 2 DIABETES MELLITUS WITHOUT COMPLICATIONS (3) Hypertension Assessment/Plan: stable on norvasc/hctz Code(s): I10 - ESSENTIAL (PRIMARY) HYPERTENSION (4) HLD (hyperlipidemia) Assessment/Plan: statin Code(s): E78.5 - HYPERLIPIDEMIA, UNSPECIFIED
--- NOTE | 2018-11-19 09:13 | PATH ---
Surgical Pathology Report Patient Name: ADI SRINIVASAN Med. Rec. #: [id number] /Age/Gender: 1965 (Age: 52) / M Account: [id number] [facility] Taken: 11/10/2018 Received: 11/10/2018 Reported: 11/19/2018 Physicians: Fortunato Donovan M.D. Specimen(s) Received RIGHT KNEE BONES Clinical History Right knee degenerative joint disease. Final Diagnosis KNEE BONES, RIGHT, TOTAL KNEE REPLACEMENT: DEGENERATIVE JOINT DISEASE. Electronically Signed Jessie Batista M.D. Gross Description Received in formalin, labeled "right knee bones" is a 12.8 x 11.5 x 2 cm, aggregate of multiple portions of bone and soft tissue. The tibial plateau measures 8.2 x 4.5 x 1 cm. The articular surfaces show areas of eburnation and appear granular. The underlying trabecular bone is yellow and hard. Flexboard Operator sections are submitted in one cassette, following decalcification.
== END 2018-11-12 12:36 | disposition home health service (06) | DRG 302 ==
LOC: FM/S 09:31
PROVIDERS: ADMIT Orthopaedic Surgery; ATTEND Orthopaedic Surgery
PROC: 0SRC0JA Replacement of Right Knee Joint with Synthetic Substitute, Uncemented, Open Approach (ICD-10-PCS; principal; 2018-11-10 12:56)
DX: M17.11 Unilateral primary osteoarthritis, right knee (principal); E11.9 Type 2 diabetes mellitus without complications; I10 Essential (primary) hypertension; E78.5 Hyperlipidemia, unspecified; J44.9 Chronic obstructive pulmonary disease, unspecified; F17.210 Nicotine dependence, cigarettes, uncomplicated
CPT/HCPCS: 36415; 73560-TC-RT-FY; 80048; 82962; 85027; 88304-TC; 88311-TC; 94760; 97116-GP; 97163-GP; J0131

== ENCOUNTER 2021-07-24 09:51 | Emergency (ER) | payer OTHER ==
[2021-07-24 10:48] VITALS: BMI 34.4
[2021-07-24] MEDS ORDERED: BEBTELOVIMAB (EUA) 175 MG/2 ML VIAL IVPUSH ONE (11:01)
[2021-07-24 13:43] VITALS: BP 171/91; PULSE 84; TEMP 100.7
== END 2021-07-24 14:51 | disposition home or self-care (01) ==
LOC: JER 09:51
DX: U07.1 COVID-19 (principal)
CPT/HCPCS: 99284-25; M0222; Q0222

== ENCOUNTER 2021-09-24 19:46 | Emergency (ER) | payer OTHER ==
[2021-09-24 20:01] VITALS: RESP 20; TEMP 98.2; BMI 34.2
[2021-09-24] MEDS ORDERED: ACETAMINOPHEN 1000 MG/100 ML BAG IVPB ONE (21:05)
[2021-09-24] MEDS ORDERED: ACETAMINOPHEN INJECTION 100 ML IVPB ONE (21:10)
[2021-09-24 21:36] LABS: BASO % 0.6 % (0-2.0); EOS % 1.7 % (0-4.5); HEMATOCRIT 42.3 % (35.4-49); HEMOGLOBIN 14.1 GM/dL (11.7-16.9); MCH 28.1 pg (25.7-33.7); MCHC 33.3 g/dl (32.0-35.9); MEAN CELL VOLUME 84.4 fl (80-96); MEAN PLT VOLUME 9.1 fl (7.5-11.1); MONO % 10.1 % (3.8-10.2); NEUT % 49.6 % (42.8-82.8); PLATELET COUNT 270 10^3/uL (134-434); RBC 5.01 M/mm3 (4.00-5.60); RDW 13.6 % (11.9-15.9); WHITE BLOOD COUNT 10.9 K/mm3 (4.0-10.0)
[2021-09-24 21:57] LABS: CALCIUM 9.7 mg/dL (8.5-10.1)
[2021-09-24 21:58] LABS: ALBUMIN 4.3 g/dl (3.4-5.0); BLOOD UREA NITROGEN 19.3 mg/dL (7-18); MAGNESIUM 1.9 mg/dL (1.8-2.4)
[2021-09-24 22:02] LABS: BILIRUBIN,TOTAL 0.4 mg/dL (0.2-1); TOT PROT 7.8 g/dl (6.4-8.2)
[2021-09-24 23:05] LABS: EPI CELLS 17 /uL (0-25.1); HYALINE CASTS 7 /uL (0-3.1); URINE APPEARANCE CLEAR; URINE BACTERIA 47 /uL (0-1359); URINE BILIRUBIN NEGATIVE (NEGATIVE); URINE COLOR YELLOW; URINE GLUCOSE (UA) 1+ (NEGATIVE); URINE KETONE NEGATIVE (NEGATIVE); URINE LEUK ESTERASE NEGATIVE (NEGATIVE); URINE NITRITE NEGATIVE (NEGATIVE); URINE PROTEIN 1+ (NEGATIVE); URINE RBC 3 /uL (0-23.9); URINE UROBILINOGEN 0.2 mg/dL (0.2-1.0); URINE WBC 9 /uL (0-25.8)
[2021-09-25 00:01] VITALS: BP 184/99; PULSE 74
== END 2021-09-25 01:53 | disposition home or self-care (01) ==
LOC: JER 19:46
PROC: 3E033GC Introduction of Other Therapeutic Substance into Peripheral Vein, Percutaneous Approach (ICD-10-PCS; principal; 2021-09-24)
DX: R10.11 Right upper quadrant pain (principal)
CPT/HCPCS: 36415; 71045-TC-FY; 71250-TC; 74176-TC; 76705-TC; 80053; 81003; 83690; 83735; 84484; 85025; 87086; 87186; 93005; 93010; 99285-25

== ENCOUNTER 2022-06-11 09:54 | Observation (INO) | payer OTHER ==
[2022-06-11 11:16] LABS: BASO % 0.8 % (0-2.0); EOS % 1.6 % (0-4.5); HEMATOCRIT 41.2 % (35.4-49); HEMOGLOBIN 14.4 GM/dL (11.7-16.9); LYMPH % 27.6 % (8-40); MCH 28.9 pg (25.7-33.7); MCHC 34.9 g/dl (32.0-35.9); MEAN CELL VOLUME 82.9 fl (80-96); PLATELET COUNT 323 10^3/uL (134-434); RBC 4.98 M/mm3 (4.00-5.60); RDW 13.9 % (11.9-15.9); WHITE BLOOD COUNT 8.9 K/mm3 (4.0-10.0)
[2022-06-11 11:29] LABS: PROTHROMBIN TIME (PATIENT) 11.6 SEC (9.7-13.0)
[2022-06-11 11:44] LABS: CALCIUM 9.9 mg/dL (8.5-10.1)
[2022-06-11 11:45] LABS: ALBUMIN 4.2 g/dl (3.4-5.0); BLOOD UREA NITROGEN 19.3 mg/dL (7-18)
[2022-06-11 11:48] LABS: CREATININE 0.9 mg/dL (0.55-1.3)
[2022-06-11 11:49] LABS: BILIRUBIN,TOTAL 0.4 mg/dL (0.2-1)
[2022-06-11 11:50] LABS: TOT PROT 8.2 g/dl (6.4-8.2)
[2022-06-11] MEDS ORDERED: ALBUTEROL SO4 HFA INHALER IH PRN (13:48)
[2022-06-11 15:05] VITALS: RESP 18
[2022-06-11 15:36] VITALS: BMI 34.9
[2022-06-11] MEDS: CARVEDILOL 12.5 MG TABLET (FP) PO SCH ×3 (15:51→23:50)
[2022-06-11] MEDS: hydrALAZINE HCL 25 MG TABLET (FP) PO SCH ×2 (15:51→21:32)
[2022-06-11] MEDS: INSULIN SLIDING SCALE (NOVOLOG) 1 VIAL SQ SCH ×2 (17:09→22:17)
[2022-06-11] MEDS ORDERED: INSULIN (NOVOLOG) ASPART 100 UNITS/ML 10ML VIAL ONE (17:12)
[2022-06-11] MEDS: SACUBITRIL/VALSARTAN 97 MG-103 MG TABLET PO SCH (21:52)
[2022-06-11] MEDS ORDERED: ROSUVASTATIN CA 20 MG TABLET PO SCH (22:00)
[2022-06-12] MEDS: INSULIN SLIDING SCALE (NOVOLOG) 1 VIAL SQ SCH ×2 (06:38→11:06)
[2022-06-12 08:09] LABS: BASO % 0.5 % (0-2.0); EOS % 1.6 % (0-4.5); HEMATOCRIT 38.9 % (35.4-49); HEMOGLOBIN 13.3 GM/dL (11.7-16.9); MCH 28.6 pg (25.7-33.7); MCHC 34.1 g/dl (32.0-35.9); MEAN CELL VOLUME 83.7 fl (80-96); MEAN PLT VOLUME 8.9 fl (7.5-11.1); MONO % 8.6 % (3.8-10.2); NEUT % 53.3 % (42.8-82.8); PLATELET COUNT 296 10^3/uL (134-434); RBC 4.65 M/mm3 (4.00-5.60); WHITE BLOOD COUNT 8.3 K/mm3 (4.0-10.0)
[2022-06-12 08:22] LABS: CALCIUM 9.3 mg/dL (8.5-10.1); MAGNESIUM 2.3 mg/dL (1.8-2.4)
[2022-06-12 08:24] LABS: ALBUMIN 3.8 g/dl (3.4-5.0); BLOOD UREA NITROGEN 21.4 mg/dL (7-18)
[2022-06-12 08:26] LABS: CREATININE 0.8 mg/dL (0.55-1.3)
[2022-06-12 08:27] LABS: PHOSPHOROUS 4.3 mg/dL (2.5-4.9); TOT PROT 7.2 g/dl (6.4-8.2)
[2022-06-12 08:28] LABS: BILIRUBIN,TOTAL 0.5 mg/dL (0.2-1)
[2022-06-12] MEDS: SACUBITRIL/VALSARTAN 97 MG-103 MG TABLET PO SCH (09:50)
[2022-06-12] MEDS: CARVEDILOL 12.5 MG TABLET (FP) PO SCH (09:50)
[2022-06-12] MEDS: hydrALAZINE HCL 25 MG TABLET (FP) PO SCH (09:52)
[2022-06-12] MEDS ORDERED: ASPIRIN 81 MG CHEWABLE TABLETS PO SCH (10:00)
[2022-06-12] MEDS ORDERED: ROSUVASTATIN CA 20 MG TABLET PO SCH (10:00)
[2022-06-12] MEDS ORDERED: EPLERENONE 25 MG TABLET PO SCH (10:00)
[2022-06-12] MEDS ORDERED: TIOTROPIUM BROMIDE 2.5 MCG (SPIRIVA) RESPIMAT INHALER IH SCH (10:00)
[2022-06-12] MEDS ORDERED: FUROSEMIDE 40 MG TABLET (FP) PO SCH (10:00)
[2022-06-12] MEDS ORDERED: CLOPIDOGREL BISULFATE 75 MG TABLET (FP) PO SCH (10:00)
[2022-06-12] MEDS ORDERED: GLIMEPIRIDE 2 MG TABLET PO SCH (10:00)
[2022-06-12] MEDS ORDERED: ENOXAPARIN NA (PORCINE) 40 MG/0.4 ML DISP.SYRIN SQ SCH (10:00)
[2022-06-12] MEDS ORDERED: INSULIN (NOVOLOG) ASPART 100 UNITS/ML 10ML VIAL ONE (11:07)
[2022-06-12] MEDS ORDERED: POTASSIUM CHLORIDE TABS 20 MEQ TABLET.ER (FP) PO ONE (11:15)
[2022-06-12 11:45] VITALS: BP 162/87; PULSE 88; TEMP 98.2
== END 2022-06-12 13:11 | disposition home or self-care (01) ==
LOC: JER 09:54 → JERBED 12:36 → J4W 15:14
PROVIDERS: ADMIT Internal Medicine; ATTEND Internal Medicine
PROC: 3E013VG Introduction of Insulin into Subcutaneous Tissue, Percutaneous Approach (ICD-10-PCS; principal; 2022-06-11)
PROC: 3E013GC Introduction of Other Therapeutic Substance into Subcutaneous Tissue, Percutaneous Approach (ICD-10-PCS; 2022-06-11)
PROC: 3E0F7SF Introduction of Other Gas into Respiratory Tract, Via Natural or Artificial Opening (ICD-10-PCS; 2022-06-11)
DX: R07.89 Other chest pain (principal); I16.0 Hypertensive urgency; I16.1 Hypertensive emergency; I25.10 Atherosclerotic heart disease of native coronary artery without angina pectoris; I42.9 Cardiomyopathy, unspecified; E11.9 Type 2 diabetes mellitus without complications; J44.9 Chronic obstructive pulmonary disease, unspecified; E78.5 Hyperlipidemia, unspecified; Z95.5 Presence of coronary angioplasty implant and graft; Z79.84 Long term (current) use of oral hypoglycemic drugs; Z88.0 Allergy status to penicillin; Z91.048 Other nonmedicinal substance allergy status
CPT/HCPCS: 36415; 71045-TC-FY; 80053; 80061; 82962; 83735; 84100; 84484; 85025; 85610; 93005; 93010; 93306-TC; 94640; 96372; 99285-25; C9803-CS; G0378; U0003; U0005

== ENCOUNTER 2023-11-10 06:01 | Day surgery (SDC) | payer OTHER ==
[2023-11-06 12:37] VITALS: BMI 34.2
[2023-11-10] MEDS ORDERED: ACETAMINOPHEN INJECTION 100 ML ONE (07:13)
[2023-11-10] MEDS ORDERED: BUPIVACAINE HCL/PF 0.5% (5 MG/ML) 30 ML VIAL IJ ONE (07:13)
[2023-11-10] MEDS ORDERED: DEXAMETHASONE SOD PHOSPHATE 10 MG/1 ML VIAL ONE (07:13)
[2023-11-10] MEDS ORDERED: MIDAZOLAM HCL 2 MG/2 ML SINGLE DOSE VIAL ONE (07:13)
[2023-11-10] MEDS ORDERED: BUPIVACAINE HCL/EPINEPHRINE/PF 30 ML VIAL IJ ONE (07:26)
[2023-11-10] MEDS ORDERED: EPINEPHrine 1:1,000 1,000 MCG/ML ML ONE (07:27)
[2023-11-10] MEDS ORDERED: PROPOFOL 20 ML ONE (07:55)
[2023-11-10] MEDS ORDERED: ACETAMINOPHEN 325 MG TABLET (FP) PO PRN (10:19)
[2023-11-10] MEDS ORDERED: ONDANSETRON 4 MG/2 ML VIAL IVPUSH PRN (10:19)
[2023-11-10] MEDS ORDERED: LACTATED RINGERS SOLUTION 1,000 ML IV SCH (10:30)
[2023-11-10 11:53] VITALS: TEMP 97.2
[2023-11-10 12:28] VITALS: BP 134/85; PULSE 83; RESP 20
== END 2023-11-10 12:28 | disposition home or self-care (01) ==
LOC: FASU 06:01
PROVIDERS: ATTEND Orthopaedic Surgery
PROC: 0LS34ZZ Reposition Right Upper Arm Tendon, Percutaneous Endoscopic Approach (ICD-10-PCS; principal; 2023-11-10 08:26)
PROC: 0RNJ4ZZ Release Right Shoulder Joint, Percutaneous Endoscopic Approach (ICD-10-PCS; 2023-11-10 08:26)
PROC: 0PB94ZZ Excision of Right Clavicle, Percutaneous Endoscopic Approach (ICD-10-PCS; 2023-11-10 08:26)
DX: S46.011D Strain of muscle(s) and tendon(s) of the rotator cuff of right shoulder, subsequent encounter (principal); M75.21 Bicipital tendinitis, right shoulder; M19.011 Primary osteoarthritis, right shoulder; M75.51 Bursitis of right shoulder; M65.811 Other synovitis and tenosynovitis, right shoulder; S43.431D Superior glenoid labrum lesion of right shoulder, subsequent encounter; M75.01 Adhesive capsulitis of right shoulder; M75.31 Calcific tendinitis of right shoulder; X58.XXXD Exposure to other specified factors, subsequent encounter
CPT/HCPCS: 82962; 88304-TC; 94760; C1713; J0131; J1100